=== PATIENT | female | born 1935 | race Caucasian/White ===

== ENCOUNTER 2019-09-25 10:32 | Emergency (ER) | payer MEDICARE ==
[~2019-09-25] VITALS: Ht 152.4 cm; Wt 52.3 kg
[2019-09-25] MEDS ORDERED: BUPIVAcaine/PF 7.5mg/ml (0.75%) 10ml vial IJ ONE (11:15)
[2019-09-25] MEDS ORDERED: LIDOcaine 5% patch TP ONE (11:20)
[2019-09-25] MEDS ORDERED: LIDO700A32 TOP (12:09)
[2019-09-25 12:45] VITALS: BP 186/91
== END 2019-09-25 12:30 | disposition home or self-care (01) ==
LOC: ER 10:33
DX: S42.031A Displaced fracture of lateral end of right clavicle, initial encounter for closed fracture (principal); M25.511 Pain in right shoulder; M19.90 Unspecified osteoarthritis, unspecified site; Z88.1 Allergy status to other antibiotic agents; Z79.899 Other long term (current) drug therapy; W01.0XXA Fall on same level from slipping, tripping and stumbling without subsequent striking against object, initial encounter; Y93.89 Activity, other specified; Y92.89 Other specified places as the place of occurrence of the external cause; Y99.8 Other external cause status
CPT/HCPCS: 64450; 73030; 99284